=== PATIENT | female | born 1990 | race Two or more races ===

== ENCOUNTER 2020-07-31 03:51 | Emergency (ER) | payer OTHER ==
[~2020-07-31] VITALS: Ht 160 cm; Wt 56.7 kg
[2020-07-31] MEDS ORDERED: CLONAZEPAM0.25 MG (03:59)
[2020-07-31] MEDS ORDERED: RESTORIL7.5 MG (03:59)
[2020-07-31] MEDS ORDERED: LEXAPRO5 MG (03:59)
[2020-07-31] MEDS ORDERED: NAPROXEN375 MG PO (08:53)
[2020-07-31] MEDS ORDERED: PEPCID20 MG PO (08:53)
== END 2020-07-31 09:10 | disposition home or self-care (01) ==
LOC: ER 03:51
DX: R10.84 Generalized abdominal pain (principal); Z03.818 Encounter for observation for suspected exposure to other biological agents ruled out